=== PATIENT | female | born 2000 | race Caucasian/White ===

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

== ENCOUNTER 2020-01-04 00:58 | Emergency (ER) | payer SELFPAY ==
--- NOTE | 2020-01-04 01:32 | ER ---
Nurse's Notes [facility] Name: Johanna Davalos Age: 19 yrs Sex: Female : 2000 Arrival Date: 01/04/2020 Time: 01:00 Bed 16 Private MD: Diagnosis: Chronic pharyngitis Presentation: 01/03 01:25 Chief complaint: Patient states: i have sore throat, headache and sweating/fever for mg2 one week. last week i had dry cough i dont have it now. Ebola Screen: No symptoms or risks identified at this time. 01:25 Method Of Arrival: Ambulatory mg2 01:25 Coronavirus screen: Patient denies a cough. Patient denies shortness of breath or mg2 difficulty breathing. Patient denies travel on a cruise ship or to a country the [facility] currently lists as an affected area. Patient denies contact with known and/or suspected case of COVID-19. Risk Assessment: Do you want to hurt yourself or someone else? Patient reports no desire to harm self or others. 01:25 Initial Sepsis Screen: Does the patient meet any 2 criteria? No. Patient's initial mg2 sepsis screen is negative. Does the patient have a suspected source of infection? No. Patient's initial sepsis screen is negative. Onset of symptoms was December 2019. 01:25 Acuity: REKHA 4 mg2 Triage Assessment: 01:20 General: Behavior is calm, cooperative. 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 - Social history:: Smoking status: Patient denies any tobacco usage or history of. Screenin:15 Abuse screen: Denies threats or abuse. Denies injuries from another. Nutritional mg2 screening: No deficits noted. Tuberculosis screening: No symptoms or risk factors identified. 01:15 Fall Risk None identified. mg2 Assessment: 01:15 General: Appears in no apparent distress. comfortable. Pain: Complains of pain in head mg2 and throat. Neuro: Level of Consciousness is awake, alert, obeys commands, Oriented to person, place, time, situation. Cardiovascular: Capillary refill < 3 seconds Patient's skin is warm and dry. Respiratory: Airway is patent Respiratory effort is even, unlabored. GI:. GI: Reports constipation. : Reports burning with urination. EENT: Reports sore throat. Derm: Skin is intact, is healthy with good turgor, Skin is pink, warm \T\ dry. normal. Musculoskeletal: Circulation, motion, and sensation intact. Capillary refill < 3 seconds. 01:47 EENT: Throat. mg2 Vital Signs: 01:15 BP 124 / 86; Pulse 98; Resp 18; Temp 99; Pulse Ox 100% on R/A; mg2 ED Course: 01:00 Patient arrived in ED. cl3 01:03 Etienne Moyer MD is Attending Physician. tw4 01:15 Larry Moser, POOL is Primary Nurse. mg2 01:15 Arm band placed on. mg2 01:15 Patient has correct armband on for positive identification. mg2 01:15 No provider procedures requiring assistance completed. mg2 01:15 Patient did not have IV access during this emergency room visit. mg2 01:47 Triage completed. mg2 Administered Medications: No medications were administered Outcome: 01:31 Discharge ordered by . tw4 01:35 Medical screen evaluation completed per provider. mg2 01:35 Condition: stable 01:35 Instructed on discharge instructions, Demonstrated understanding of instructions. mg2 01:47 Patient left the ED. mg2 Signatures: Etienne Moyer MD MD tw4 Larry Moser, POOL RN mg2 Bianca Sharif cl3 Corrections: (The following items were deleted from the chart) 01:46 01:45 Patient has correct armband on for positive identification. mg2 mg2
--- NOTE | 2020-01-04 01:32 | EDPHYS ---
Physician Documentation [facility] Name: Johanna Davalos Age: 19 yrs Sex: Female : 2000 Arrival Date: 01/04/2020 Time: 01:00 Bed 16 Private MD: ED Physician Etienne Moyer HPI: 01/03 01:15 This 19 yrs old Female presents to ER via Unassigned with complaints of Sore tw4 Throat, Fever. 01:15 The patient presents with sore throat. The patient describes throat pain as constant. tw4 Onset: The symptoms/episode began/occurred 1 week(s) ago. Severity of symptoms: At their worst the symptoms were mild, in the emergency department the symptoms are unchanged. The patient has not experienced similar symptoms in the past. 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 - Social history:: Smoking status: Patient denies any tobacco usage or history of. ROS: 01:15 Constitutional: Negative for fever, chills, and weight loss, Cardiovascular: Negative tw4 for chest pain, palpitations, and edema, Respiratory: Negative for shortness of breath, cough, wheezing, and pleuritic chest pain, Abdomen/GI: Negative for abdominal pain, nausea, vomiting, diarrhea, and constipation, Back: Negative for injury and pain, MS/Extremity: Negative for injury and deformity, Skin: Negative for injury, rash, and discoloration, Neuro: Negative for headache, weakness, numbness, tingling, and seizure. 01:15 ENT: Positive for sore throat. Exam: 01:15 Constitutional: This is a well developed, well nourished patient who is awake, alert, tw4 and in no acute distress. Head/Face: Normocephalic, atraumatic. 01:15 Cardiovascular: Regular rate and rhythm with a normal S1 and S2. No gallops, murmurs, or rubs. Normal PMI, no JVD. No pulse deficits. Respiratory: Lungs have equal breath sounds bilaterally, clear to auscultation and percussion. No rales, rhonchi or wheezes noted. No increased work of breathing, no retractions or nasal flaring. Abdomen/GI: Soft, non-tender, with normal bowel sounds. No distension or tympany. No guarding or rebound. No evidence of tenderness throughout. Back: No spinal tenderness. No costovertebral tenderness. Full range of motion. MS/ Extremity: Pulses equal, no cyanosis. Neurovascular intact. Full, normal range of motion. Neuro: Awake and alert, GCS 15, oriented to person, place, time, and situation. Cranial nerves II-XII grossly intact. Motor strength 5/5 in all extremities. Sensory grossly intact. Cerebellar exam normal. Normal gait. 01:15 ENT: External ear(s): are unremarkable, Ear canal(s): are normal, TM's: are normal, Posterior pharynx: Tonsils: bilaterally enlarged, no erythema, no exudate, no ulcerations. Vital Signs: 01:15 BP 124 / 86; Pulse 98; Resp 18; Temp 99; Pulse Ox 100% on R/A; mg2 MDM: 01:03 Patient medically screened. tw4 01:15 Data reviewed: vital signs, nurses notes. Medical screen evaluation completed. [facility] emergency medical condition absent. Administered Medications: No medications were administered Disposition: 01:17 [facility] Disposition: 01/04/20 01:31 Discharged to Home. Impression: Chronic pharyngitis. - Condition is Stable. - Medication Reconciliation Form, Thank You Letter, Antibiotic Education, Prescription Opioid Use form. - Follow up: Private Physician; When: Upon discharge from the Emergency Department; Reason: Recheck today's complaints, Continuance of care, Re-evaluation by your physician. - Problem is new. - Symptoms are unchanged. Signatures: Etienne Moyer MD MD tw4 Larry Moser RN RN mg2 Corrections: (The following items were deleted from the chart) 01:47 01:31 01/04/2020 01:31 Discharged to Home. Impression: Chronic pharyngitis. Condition mg2 is Stable. Forms are Medication Reconciliation Form, Thank You Letter, Antibiotic Education, Prescription Opioid Use. Follow up: Private Physician; When: Upon discharge from the Emergency Department; Reason: Recheck today's complaints, Continuance of care, Re-evaluation by your physician. Problem is new. Symptoms are unchanged. tw4
[2020-01-04 02:11] VITALS: BP 124/86; TEMP 99; O2SAT 100
== END 2020-01-04 01:47 | disposition home or self-care (01) ==
LOC: ER 00:58
DX: J31.2 Chronic pharyngitis (principal)
CPT/HCPCS: 99281

== ENCOUNTER 2021-12-11 16:55 | Emergency (ER) | payer OTHER ==
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
[2021-12-11] MEDS ORDERED: KETOROLAC 30 MG/ML INJ ONE (17:16)
[2021-12-11 17:18] LABS: Urine Blood Trace-intact (Negative); Urine Glucose Negative (Negative); Urine Protein Negative (Negative); Urine Specific Gravity 1.025 (1.005-1.030)
[2021-12-11] MEDS ORDERED: IBUPROFEN 400 MG TAB ONE (17:24)
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
[2021-12-11 17:52] LABS: Urine Specific Gravity/Preg 1.025 (1.005-1.030)
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
[2021-12-11] MEDS ORDERED: HYDROCODONE/APAP 7.5/325 MG TAB ONE (18:46)
[2021-12-11 19:38] VITALS: BP 106/61; O2SAT 100
[2021-12-11 19:41] VITALS: TEMP 99.5
== END 2021-12-11 18:51 | disposition home or self-care (01) ==
LOC: ER 16:55
DX: S16.1XXA Strain of muscle, fascia and tendon at neck level, initial encounter (principal); S20.229A Contusion of unspecified back wall of thorax, initial encounter; V49.50XA Passenger injured in collision with unspecified motor vehicles in traffic accident, initial encounter
CPT/HCPCS: 70450; 71250; 72125; 81003; 81025; 99284

== ENCOUNTER 2022-02-19 16:09 | Emergency (ER) | payer OTHER ==
--- OUTSIDE RECORDS SUMMARY | 2022-02-19 16:12 | XMS REPORT | Continuity of Care Document ---
:2000 Author Organization [facility] t Address [address] [place] [address] Care Team Providers Name Role Phone Pcp, Does Not Have A Primary Care Physician Pavel Leger Attending Clinician Unavailable Rayray BRUNNER F Attending Clinician Michael SEO Attending Clinician Unavailable Physician, Primary or Family Admitting Clinician Unavailabl e Payers Payer Name Policy Type Policy Number Effective Date Expiration Date S ource Problems Condition Condition Condition Status Onset Resolution Last Treating Co mments Source Name Details Category Date Date Treatment Clinician Date No known No known Disease Unive rs active active ity of problems problems [facility] Allergies, Adverse Reactions, Alerts Allergy Allergy Status Severity Reaction(s) Onset Inactive Treating Comm ents Source Name Type Date Date Clinician No Known DA Active U 2020-09 [facility] No Known DA Active U 2020-09 [facility] [address] NO KNOWN Drug Active [facility] ALLERGIE Class ity of S [facility] Social History Social Habit Start Date Stop Date Quantity Comments Source Exposure to Not sure [facility] SARS-CoV-2 (event) Medica l Branch Sex Assigned At [birth year] [facility] [place] [facility]:00:00 Medical Branch Smoking Status Start Date Stop Date Source Unknown if ever smoked [facility] Medications Ordered Filled Start Stop Current Ordering Indication Dosage Frequency Signature Comments Components Source Medication Medication Date Date Medication? Clinician (SIG) Name Name ibuprofen 2020-09- No 600mg 600 mg, Uni vers (IBU) 0-20 10-20 Oral, ity of tablet 600 03:00: 01:53 ONCE, 1 Raphael as mg 00 :00 dose, On Medical e Branch 07/06/21 at 2200, ADE traMADoL 2020-09 No 50mg 50 mg, Univer s (ULTRAM) 0-20 10-20 Oral, ity of tablet 50 01:15: 00:42 ONCE, [place] mg 00 :00 dose, On Medical e Branch 07/06/21 at 2015, Routine traMADoL 50 2020-09 Yes [id number] 50mg Take 1 Univ ers mg tablet 0-19 tablet by ity o f 00:00: mouth [place] 00 every 6 Medical (six) Branch hours as needed for Pain (scale 7-10). Indication s: acute pain doxycycline 2020-09- No [id number] 100mg Take 1 Univers hyclate 100 07-14 [id number] capsule by ity of mg capsule 00:00: 04:59 mouth 2 Raphael as 00 :00 (two) Medical times Branch daily for 7 days. Immunizations Ordered Filled Immunization Date Status Comments [facility] [place] e Immunization Name Name Td 2021-07-06 [facility] 00:00:00 [facility] Vital Signs Vital Name Observation Time Observation Value Comments Source Systolic blood 2021-07-07 01:56:42 127 mm[Hg] Univer sity of pressure [facility] Diastolic blood 2021-07-07 01:56:42 85 mm[Hg] [facility] Heart rate 2021-07-07 01:56:42 95 /min [facility] ty [facility] Respiratory rate 2021-07-07 01:56:42 17 /min General acute hospital Oxygen saturation in 2021-07-07 01:56:42 99 /min [facility] Arterial blood by [facility] Pulse oximetry Branch Body temperature 2021-07-06 23:47:00 37.17 Emily [facility] acute hospital Body weight 2021-07-06 23:47:00 54.432 kg [facility] Procedures Procedure Date / Time Performed Performing Clinician Jaguar e XR FOOT 3+ VW LEFT 2021-07-07 00:52:42 Iris Seo [facility] acute hospital POCT TEST 2021-07-07 00:39:00 Iris Seo [facility] acute hospital Encounters Start End Encounter Admission Attending Care Care Encounter Source Date/Time Date/Time Type Type Clinicians Facility Department ID 2021-07-06 Inpatient [facility] TATI [id number] [facility] 23:50:00 [id number] [facility] [place] 2021-07-06 2021-07-07 Emergency ABDELRAHMAN Leger, [facility] TATI [id number] [facility] 23:50:00 02:20:00 [facility] [place] 2021-07-06 2021-07-06 Emergency [facility] [id number] [facility] 18:49:00 20:58:00 Iris [facility] [id number] [facility] [id number] [facility] [id number] [place] [id number] Branch 2021-07-06 2021-07-06 [facility] [id number] Univers 18:41:00 18:41:00 [facility] Results Test Description Test Time Test Comments Results Result Comments Source PAP TEST, THINPREP, IMAGED 2022-01-14 17:47:20 Test Item Value Reference Range Interpretation Comme nts SOURCE: (test code = Cervical/Endocervical 8001) SLIDES: (test code = 1 8011) LMP: (test code = 8021) 12/17/2021 SPECIMEN ADEQUACY: (test (NOTE) Satisfactory for code = 18895) evaluation. Endocervical cells/transform ation zone component prese nt. INTERPRETATION: (test LSIL/EPITH. ABNORMALITY; SEE A code = 34346) BELOW --- EPITHELIAL CELL ABNORMALITY Low Grade Squam ous Intraepithelial Lesion (LSIL) --- SURGICAL ONCOLOGIST: (test Pam Chowdary Judith,CT(ASCP)IAC code = 8101) PATHOLOGIST Jaison Yao. INTERPRETATION BY: (test code = 8122) LOCATION: (test code = (NOTE) [place] [address]) [facility] [address] [facility] [place] [address], Phone: , CLIA: [id number] i nterpreted at [facility], [address], [place] [address], Phone: , CLIA: [id number] CPT: (test code = 8140) (NOTE) 8817 5, 86006 UNLESS OTHERWISE INDIC ATED, COMPUTER AIDED AND CYTOTECHNOLOGIS T SCREENING PERFO RMED. The Pap test is a screening test with an inherent, but l ow probability of error. Your patient sh ould be reminded to consult you immediately if she experiences any suspicious signs or sy mptoms, regardless of h er Pap test result. An alternate report format c ontaining images or conso lidated prior Pap histo ry is available as ap plicable. CT/NG, TMA, [id number] 19:41:11 Test Item Value Reference Range Interpretation Comments GONORRHEA, TMA NEGATIVE NEGATIVE Assay m ethodology is (test code = nucleic acid am plification 35323) by transcriptio n mediated amplif ication (TMA) utilizing the Aptima Combo 2 Assay. CHLAMYDIA, TMA NEGATIVE NEGATIVE Assay m ethodology is (test code = nucleic acid am plification 12155) by transcriptio n mediated amplif ication (TMA) utilizing the Aptima Combo 2 Assay. HPV HIGH RISK WITH GENOTYPE, [id number] 16:34:15 Test Item Value Reference Range Interpretation Comments HPV HIGH RISK INTERP POSITIVE NEGATIVE A (test code = 41004) HPV 16 (test code = NEGATIVE 26048) HPV 18 (test code = NEGATIVE 83213) HPV, HR, OTHER POSITIVE A Testing GENOTYPES (test code methodo logy is real-time = 48171) PCR utilizing h ydrolysis probes with the Bridger Sadiq 480 0 system. The test indiv idually detects genot ypes 16 and 18, as well as the other 12 high r isk types (31,33,35,39,45 ,51,52,56 ,58,59,66,68). The expected re sult is negative. A negative result does not rule out the presence of HPV not included in the genotype set, a low level of infect ion or specimen fercho pling error. U NLESS OTHERWISE INDIC ATED, ALL TESTING PERFORM ED ATCLINICAL PATH [address] [address] LABORATORY DIRE CTOR: ROB SALAS M.D. CLIA NUMBER [id number] CAP ACCREDITATION N O. [id number] VAGINAL PATHOGENS DNA [id number] 14:55:18 Test Item Value Reference Range Interpretation Comments JANIS SPECIES (test NEGATIVE NEGATIVE code = ) G. VAGINALIS (test NEGATIVE NEGATIVE code = 56225) T. VAGINALIS (test NEGATIVE NEGATIVE UN LESS OTHERWISE code = 84915) INDICATED, ALL TESTING PERFORMED ATCLI NICAL PATHOLOGY [address] [address] LABORATORY DIR CHRIS: ROB SALAS M.D. CLIA NUMBER [id number] CAP ACCREDITATION N O. [id number] POCT [id number] 00:39:00 Test Item Value Reference Range Interpretation Comments POCT PREG (test code = 1605) negative On board controls acceptable with present C Line (test code = 3574) POCT PREG LOT # (test code = 3575) [id number] POCT PREG TEST DATE (test 10/18/2022 code = 3576) Lab Interpretation (test code = Normal 23126-4) [facility]- XR FOOT 3 + V [id number] 00:00:00 [facility] : 2000 Sex: F Patient Name: CATALINA SANDOVAL Unit No: [id number] EXAMS: CPT CODE: [id number] XR FOOT 3 + [place] [address] PROCEDURE INFORMATION: Exam: XR Left Foot Exam [...] CC: Technologist: RT Jac Trnscrbd D/ (216) [email or web address].[email or web address] OrigPrint D/T: S: 07/07/2021 (216) [facility] NAME: CATALINA SANDOVAL Radiology Department PHYS: Martin Walker [address] : 2000 AGE: 20 SEX: F [place], [place] [address] LOC: [place] PHONE #: [phone] EXAM DATE: 07/07/2021 STATUS: PRE ER FAX #: [phone] RAD NO: Page 1 Signed Report- XR FOOT 3 + V [id number] 00:00:00 [facility] : 2000 Sex: F Patient Name: CATALINA SANDOVAL Unit No: [id number] EXAMS: CPT CODE: [id number] XR FOOT 3 + [place] [id number] PROCEDURE INFORMATION: Exam: XR Left Foot Exam [...] signed by: Aquiles Pena MD CC: Technologist: Clair Herman, RT Trnscrbd D/ (0033) GCD.CPS Orig Print D/T: S: 07/07/2021 (0033) [facility] NAME: CATALINA SANDOVAL Radiology Department PHYS: Martin Walker [address] : 2000 AGE: 20 SEX: F [place], [place] [address] LOC: [place] PHONE #: [phone] EXAM DATE: 07/07/2021 STATUS: PRE ER FAX #: [phone] RAD NO: Page 1 Signed Report
[2022-02-19 17:57] LABS: Urine Blood Trace-intact (Negative); Urine Glucose Negative (Negative); Urine Protein Negative (Negative); Urine Specific Gravity 1.025 (1.005-1.030)
[2022-02-19 18:33] LABS: Urine Bacteria >50 /HPF (<20); Urine RBC NONE SEEN /HPF (NONE SEEN)
--- NOTE | 2022-02-19 19:30 | ER ---
Nurse's Notes [facility] Name: Johanna Davalos Age: 21 yrs Sex: Female : 2000 Arrival Date: 02/19/2022 Time: 16:19 Bed 5 Private MD: Diagnosis: UTI/ Urinary tract infection, site not specified;Encounter for test, result negative Presentation: 02/19 16:31 Chief complaint: Patient states: "Bad cramps" this week. Home test was ll1 negative, although she believes she might be . Coronavirus screen: Vaccine status: Patient reports being unvaccinated. Client denies travel out of the [place] in the last 14 days. At this time, the client does not indicate any symptoms associated with coronavirus-19. Ebola Screen: Patient denies travel to an Ebola-affected area in the 21 days before illness onset. Initial Sepsis Screen: Does the patient meet any 2 criteria? No. Patient's initial sepsis screen is negative. Does the patient have a suspected source of infection? No. Patient's initial sepsis screen is negative. Risk Assessment: Do you want to hurt yourself or someone else? Patient reports no desire to harm self or others. Onset of symptoms was February 12, 2022. 16:31 Method Of Arrival: Ambulatory ll1 16:31 Acuity: REKHA 4 ll1 Triage Assessment: 16:33 General: Appears in no apparent distress. Behavior is calm, cooperative, appropriate ll1 for age. Pain: Complains of pain in PELVIC Pain currently is 8 out of 10 on a pain scale. Quality of pain is described as crampy, Pain began 1 WEEK AGO. GI: Reports lower abdominal pain, cramping. : Reports cramping. Historical: - Allergies: 16:33 No Known Allergies; ll1 - PMHx: 16:33 None; ll1 - PSHx: 16:33 None; ll1 - Immunization history:: Client reports having NOT received the Covid vaccine. - Social history:: Smoking status: Reported history of juuling and/or vaping. Screenin:57 Abuse screen: Denies threats or abuse. Denies injuries from another. Nutritional tw5 screening: No deficits noted. Tuberculosis screening: No symptoms or risk factors identified. Fall Risk None identified. Assessment: 19:57 General: Appears in no apparent distress. Behavior is calm, cooperative, appropriate tw5 for age. Vital Signs: 16:31 BP 99 / 60; Pulse 85; Resp 16; Temp 99.1; Pulse Ox 97% on R/A; Weight 53.52 kg; Height ll1 5 ft. 2 in. (157.48 cm); Pain 8/10; 16:31 Body Mass Index 21.58 (53.52 kg, 157.48 cm) ll1 ED Course: 16:19 Patient arrived in ED. jj6 16:21 Jose Angel Guillory PA is PHCP. cp 16:21 Jose Angel Carter MD is Attending Physician. cp 16:31 Arm band placed on Patient placed in an exam room, on a stretcher. ll1 16:33 Triage completed. ll1 16:42 Rosario De Leon, RN is Primary Nurse. gagnon 18:27 Initial lab(s) drawn, by ks, sent to lab. jw7 18:31 Test, Serum Sent. ll1 19:57 Patient has correct armband on for positive identification. tw5 19:57 No provider procedures requiring assistance completed. Patient did not have IV access tw5 during this emergency room visit. Administered Medications: 19:55 Drug: Rocephin (cefTRIAXone) 1 grams Route: IM; Site: right ventrogluteal; gagnon 19:57 Follow up: Response: No adverse reaction tw5 Medication: 19:57 VIS not applicable for this client. tw5 Outcome: 19:30 Discharge ordered by . cp 19:57 Discharged to home tw5 19:57 Condition: good 19:57 Discharge instructions given to patient, Instructed on discharge instructions, follow up and referral plans. Demonstrated understanding of instructions, follow-up care, medications, Prescriptions given X 2. 19:58 Patient left the ED. tw5 Signatures: Jose Angel Guillory PA PA cp Lewis, Lynsay, RN RN [facility] Hanane Mayfield tw5 Larisa Bob jj6 Rosario De Leon, Nilda Markham RN jw7
--- NOTE | 2022-02-19 19:31 | EDPHYS ---
Physician Documentation [facility] Name: Johanna Davalos Age: 21 yrs Sex: Female : 2000 Arrival Date: 02/19/2022 Time: 16:19 Bed 5 Private MD: Jose Angel Meade HPI: 02/19 17:20 This 21 yrs old Female presents to ER via Ambulatory with complaints of Pelvic Pain, cp Low Back Pain. 17:20 The patient presents with urinary symptoms, hematuria. Associated signs and symptoms: cp Pertinent positives: cramping, vaginal discharge. 17:20 The patient's method of control includes nothing. cp 17:20 Patient reports concern for possible due to symptoms of cramping. Reports cp taking several home test that were negative. Historical: - Allergies: 16:33 No Known Allergies; ll1 - PMHx: 16:33 None; ll1 - PSHx: 16:33 None; ll1 - Immunization history:: Client reports having NOT received the Covid vaccine. - Social history:: Smoking status: Reported history of juuling and/or vaping. ROS: 17:30 Constitutional: Negative for body aches, chills, fever, poor PO intake. cp 17:30 Eyes: Negative for injury, pain, redness, and discharge. cp 17:30 ENT: Negative for drainage from ear(s), ear pain, sore throat, difficulty swallowing, difficulty handling secretions. 17:30 Cardiovascular: Negative for chest pain, edema, palpitations. 17:30 Respiratory: Negative for cough, shortness of breath, wheezing. 17:30 Abdomen/GI: Positive for abdominal cramps, Negative for vomiting, diarrhea, constipation, black/tarry stool, rectal bleeding. 17:30 : Positive for vaginal discharge. 17:30 Back: Positive for pain at rest. cp 17:30 All other systems are negative. cp Exam: 17:35 Constitutional: The patient appears in no acute distress, alert, awake, comfortable, cp non-toxic, well developed, well nourished. 17:35 Head/Face: Normocephalic, atraumatic. cp 17:35 Eyes: Periorbital structures: appear normal, Conjunctiva: normal, no exudate, no injection, Sclera: no appreciated abnormality, Lids and lashes: appear normal, bilaterally. 17:35 ENT: External ear(s): are unremarkable, Nose: is normal, Posterior pharynx: Airway: no evidence of obstruction, patent. 17:35 Chest/axilla: Inspection: normal. 17:35 Cardiovascular: Rate: normal, Rhythm: regular. 17:35 Respiratory: the patient does not display signs of respiratory distress, Respirations: normal, no use of accessory muscles, no retractions, labored breathing, is not present, Breath sounds: are clear throughout, no decreased breath sounds, no stridor, no wheezing. 17:35 Abdomen/GI: Inspection: abdomen appears normal, Bowel sounds: active, all quadrants, Palpation: soft, in all quadrants, mild abdominal tenderness, in the right lower quadrant and left lower quadrant, rebound tenderness, is not appreciated, involuntary guarding, is not appreciated. 17:35 Back: CVA tenderness, is absent. 17:35 Neuro: Orientation: to person, place \T\ time. Mentation: is normal, Motor: moves all fours, strength is normal, Sensation: is normal. Vital Signs: 16:31 BP 99 / 60; Pulse 85; Resp 16; Temp 99.1; Pulse Ox 97% on R/A; Weight 53.52 kg; Height ll1 5 ft. 2 in. (157.48 cm); Pain 8/10; 16:31 Body Mass Index 21.58 (53.52 kg, 157.48 cm) ll1 MDM: 16:31 Patient medically screened. cp 18:00 Differential diagnosis: appendicitis, cervicitis, dysmenorrhea, ectopic , cp kidney stone, menometrorrhagia, nonspecific abdominal pain, ovarian cyst, pelvic inflammatory disease, urinary tract infection, vaginosis. 19:30 Data reviewed: vital signs, nurses notes, lab test result(s), and as a result, I will cp discharge patient. 19:30 Counseling: I had a detailed discussion with the patient and/or guardian regarding: the cp historical points, exam findings, and any diagnostic results supporting the discharge/admit diagnosis, lab results, to return to the emergency department if symptoms worsen or persist or if there are any questions or concerns that arise at home. 02/19 17:57 Order name: Urine Microscopic Only; Complete Time: 19:06 serg 02/19 17:57 Order name: Urine Dipstick-Ancillary; Complete Time: 19:06 EDMN 02/19 17:58 Order name: Urine --Ancillary (enter results) eb 02/19 18:01 Order name: Test, Serum; Complete Time: 19:06 cp 02/19 18:36 Order name: Urine Culture [facility] 02/19 17:20 Order name: Urine Dipstick-Ancillary (obtain specimen); Complete Time: 17:58 cp 02/19 17:20 Order name: Urine Test (obtain specimen); Complete Time: 17:58 cp Administered Medications: 19:55 Drug: Rocephin (cefTRIAXone) 1 grams Route: IM; Site: right ventrogluteal; 19:57 Follow up: Response: No adverse reaction tw5 Disposition Summary: 02/19/22 19:30 Discharge Ordered Location: Home cp Problem: new cp Symptoms: are unchanged cp Condition: Stable cp Diagnosis - UTI/ Urinary tract infection, site not specified cp - Encounter for test, result negative cp Followup: cp - With: Private Physician - When: 1 week - Reason: Recheck today's complaints Discharge Instructions: - Discharge Summary Sheet cp - Urinary Tract Infection, Adult cp - Home Test Information cp Forms: - Medication Reconciliation Form cp - Thank You Letter cp - Antibiotic Education cp - Prescription Opioid Use cp Prescriptions: - Pyridium 200 mg Oral Tablet - take 1 tablet by ORAL route every 8 hours for 2 days; 6 tablet; Refills: 0, cp Product Selection Permitted - Bactrim DS 800-160 mg Oral Tablet - take 1 tablet by ORAL route every 12 hours for 7 days; 14 tablet; Refills: 0, cp Product Selection Permitted Signatures: Dispatcher [employer] [facility] Jose Angel Guillory PA PA cp Nereyda Sharif RN RN ll1 Rosario De Leon RN RN ha Wood, Tiffany tw5 Corrections: (The following items were deleted from the chart) 02/20 11:27 02/19 17:30 All other systems are negative, cp cp
[2022-02-19] MEDS ORDERED: WATER FOR INJ,STERILE 10 ML ONE (19:40)
[2022-02-19] MEDS ORDERED: CEFTRIAXONE 1000 MG/VIAL ONE (19:40)
[2022-02-19 20:03] VITALS: BP 99/60; TEMP 99.1; O2SAT 97
[2022-02-19 21:44] LABS: Urine Specific Gravity/Preg 1.025 (1.005-1.030)
== END 2022-02-19 19:58 | disposition home or self-care (01) ==
LOC: ER 16:09
DX: N39.0 Urinary tract infection, site not specified (principal); Z32.02 Encounter for pregnancy test, result negative
CPT/HCPCS: 36415; 81003; 81015; 81025; 84703; 87077; 87086; 87088; 87186; 96372; 99283

== ENCOUNTER 2023-07-12 20:12 | Emergency (ER) | payer OTHER ==
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
[2023-07-12] MEDS ORDERED: CYCLOBENZAPRINE 10 MG TAB ONE (21:18)
[2023-07-12] MEDS ORDERED: KETOROLAC 30 MG/ML INJ ONE (21:18)
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
[2023-07-13 16:12] VITALS: BP 105/67; TEMP 98.6; O2SAT 100
== END 2023-07-12 22:17 | disposition home or self-care (01) ==
LOC: ER 20:12
DX: M54.50 Low back pain, unspecified (principal); M54.2 Cervicalgia; V49.59XA Passenger injured in collision with other motor vehicles in traffic accident, initial encounter

== ENCOUNTER → 2023-10-13 | Emergency (ER) | payer OTHER, SELFPAY ==
[~2023-10-13] MED LIST: ACETAMINOPHEN 325 MG TABLET ONE
--- NOTE | 2023-10-14 01:26 | ER ---
Nurse's Notes [facility] Name: Johanna Davalos Age: 23 yrs Sex: Female : 2000 Arrival Date: 10/13/2023 Time: 23:39 Bed 12 Private MD: Diagnosis: SARS-associated coronavirus as the cause of diseases classified elsewhere Presentation: 10/13 23:44 Chief complaint: Patient states: exposure to covid, symptoms started . neck rv pain, headache, and sore throat. feels hot but no fever is documented. denies n/v. diarrhea x2. denies cough and congestion. Coronavirus screen: At this time, the client does not indicate any symptoms associated with coronavirus-19. Ebola Screen: No symptoms or risks identified at this time. Initial Sepsis Screen: Does the patient meet any 2 criteria? No. Patient's initial sepsis screen is negative. Does the patient have a suspected source of infection? No. Patient's initial sepsis screen is negative. Risk Assessment: Do you want to hurt yourself or someone else? Patient reports no desire to harm self or others. Onset of symptoms was October 13, 2023. 23:44 Method Of Arrival: Ambulatory rv 23:44 Acuity: REKHA 4 rv Triage Assessment: 23:47 General: Appears uncomfortable, Behavior is calm, cooperative. Pain: Complains of pain rv in neck, head, throat. EENT: Throat is clear. Neuro: Level of Consciousness is awake, alert, obeys commands, Oriented to person, place, time, situation. Cardiovascular: Capillary refill < 3 seconds Patient's skin is warm and dry. Respiratory: Airway is patent Respiratory effort is even, unlabored. GI: No signs and/or symptoms were reported involving the gastrointestinal system. : No signs and/or symptoms were reported regarding the genitourinary system. Derm: Skin is intact. Historical: - Allergies: 23:47 No Known Allergies; rv - Home Meds: 23:47 None [Active]; rv - PMHx: 23:47 None; rv - PSHx: 23:47 None; rv - Immunization history:: Adult Immunizations up to date. - Social history:: Smoking status: Reported history of juuling and/or vaping. Screenin/27 01:42 [facility] ED Fall Risk Assessment (Adult) History of falling in the last 3 months, jb4 including since admission No falls in past 3 months (0 pts) Confusion or Disorientation No (0 pts). Abuse screen: Denies threats or abuse. Nutritional screening: No deficits noted. Tuberculosis screening: No symptoms or risk factors identified. Assessment: 01:42 Reassessment: Patient appears in no apparent distress at this time. Patient and/or jb4 family updated on plan of care and expected duration. Pain level reassessed. Patient is alert, oriented x 3, equal unlabored respirations, skin warm/dry/pink. Vital Signs: 10/13 23:44 BP 112 / 75; Pulse 118; Resp 19; Temp 99.1; Pulse Ox 100% ; Weight 49.9 kg; Height 5 rv ft. 2 in. ; 23:44 Body Mass Index 20.12 (49.90 kg, 157.48 cm) rv ED Course: 23:41 Patient arrived in ED. jj6 23:43 Jose Angel Guillory PA is PHCP. cp 23:43 Jose Angel Carter MD is Attending Physician. cp 23:47 Triage completed. rv 23:48 Arm band placed on right wrist. rv 23:59 Strep Sent. jb4 23:59 COVID-19 SARS RT PCR Sent. jb4 23:59 Influenza Screen (a \T\ B) Sent. jb4 10/14 01:42 Patient has correct armband on for positive identification. Call light in reach. Side jb4 rails up X 1. 01:42 No provider procedures requiring assistance completed. Patient did not have IV access jb4 during this emergency room visit. Administered Medications: 00:04 Drug: Acetaminophen PO 650 mg PO once Route: PO; jb4 Outcome: 01:25 Discharge ordered by . cp 01:42 Discharged to home ambulatory, with friend, jb4 01:42 Condition: stable 01:42 Discharge instructions given to patient, Instructed on discharge instructions, follow up and referral plans. medication usage, Demonstrated understanding of instructions, follow-up care, medications, Prescriptions given X 2, 01:42 Patient left the ED. jb4 Signatures: Jose Angel Guillory PA PA cp Bryson, James RN RN jb4 Tim Sanchez RN RN rv Larisa Bob jj6 Corrections: (The following items were deleted from the chart) 10/13 23:48 23:44 Chief complaint: Patient states: exposure to covid, symptoms started . rv neck pain, headache, and sore throat. feels hot but no fever is documented. denies n/v. diarrhea x2. rv
--- NOTE | 2023-10-14 01:26 | EDPHYS ---
Physician Documentation [facility] Name: Johanna Davalos Age: 23 yrs Sex: Female : 2000 Arrival Date: 10/13/2023 Time: 23:39 Bed 12 Private MD: ED Physician Jose Angel Carter HPI: 10/14 00:00 This 23 yrs old Female presents to ER via Ambulatory with complaints of Ear Pain, Neck cp and Upper Back Pain, Fever. 00:00 The patient presents with pain. The complaints affect the right ear. Onset: The cp symptoms/episode began/occurred last week on . Associated signs and symptoms: Pertinent positives: body aches, fever, sore throat, cough, Pertinent negatives: vomiting, diarrhea. Severity of symptoms: in the emergency department the symptoms are unchanged despite home interventions. Historical: - Allergies: 10/13 23:47 No Known Allergies; rv - Home Meds: 23:47 None [Active]; rv - PMHx: 23:47 None; rv - PSHx: 23:47 None; rv - Immunization history:: Adult Immunizations up to date. - Social history:: Smoking status: Reported history of juuling and/or vaping. ROS: 10/14 00:05 Constitutional: Positive for body aches, chills, fatigue, Negative for fever, cp 00:05 Eyes: Negative for injury, pain, redness, and discharge, cp 00:05 ENT: Positive for sore throat, Negative for drainage from ear(s), ear pain, difficulty swallowing, difficulty handling secretions, 00:05 Cardiovascular: Negative for chest pain, 00:05 Respiratory: Positive for cough, 00:05 Abdomen/GI: Negative for vomiting, diarrhea, constipation, 00:05 Skin: Negative for rash, 00:05 Neuro: Positive for headache, Negative for altered mental status, Exam: 00:10 Head/Face: Normocephalic, atraumatic. cp 00:10 Constitutional: The patient appears in no acute distress, alert, awake, non-toxic, well developed, well nourished, uncomfortable, 00:10 Eyes: Periorbital structures: appear normal, Conjunctiva: normal, no exudate, no injection, Sclera: no appreciated abnormality, Lids and lashes: appear normal, bilaterally, 00:10 ENT: External ear(s): are unremarkable, Ear canal(s): are normal, clear, TM's: erythema, that is mild, bilaterally, Nose: is normal, Mouth: Lips: moist, Oral mucosa: moist, Posterior pharynx: Airway: no evidence of obstruction, patent, Tonsils: no enlargement, no exudate, erythema, that is mild, exudate, is not appreciated, 00:10 Neck: ROM/movement: is normal, is supple, without pain, no range of motions limitations, no meningismus, 00:10 Chest/axilla: Inspection: normal, 00:10 Cardiovascular: Rate: tachycardic, Rhythm: regular, 00:10 Respiratory: the patient does not display signs of respiratory distress, Respirations: normal, no use of accessory muscles, no retractions, labored breathing, is not present, Breath sounds: are clear throughout, no decreased breath sounds, no stridor, no wheezing, 00:10 Abdomen/GI: Inspection: abdomen appears normal, Palpation: abdomen is soft and non-tender, in all quadrants, 00:10 Back: CVA tenderness, is absent, 00:10 Skin: no rash present. 00:10 Neuro: Orientation: to person, place \T\ time. Mentation: is normal, Vital Signs: 10/13 23:44 BP 112 / 75; Pulse 118; Resp 19; Temp 99.1; Pulse Ox 100% ; Weight 49.9 kg; Height 5 rv ft. 2 in. ; 23:44 Body Mass Index 20.12 (49.90 kg, 157.48 cm) rv MDM: 23:49 Patient medically screened. cp 10/13 23:53 Order name: Strep cp 10/13 23:53 Order name: COVID-19 SARS RT PCR; Complete Time: 00:53 cp 10/13 23:53 Order name: Influenza Screen (a \T\ B); Complete Time: 00:53 cp 10/14 00:29 Order name: Throat Culture EDMS Administered Medications: 10/14 00:04 Drug: Acetaminophen PO 650 mg PO once Route: PO; jb4 Disposition Summary: 10/14/23 01:25 Discharge Ordered Notes: Location: Home cp Problem: new cp Symptoms: have improved cp Condition: Stable cp Diagnosis - SARS-associated coronavirus as the cause of diseases classified elsewhere cp Followup: cp - With: Private Physician - When: 2 - 3 days - Reason: Worsening of condition Discharge Instructions: - Discharge Summary Sheet cp - Form - Excuse from Work, School, or Physical Activity cp - COVID-19 cp - How to Protect Yourself and Others - [facility] (11/12/2021) cp - 10 Things You Can Do to Manage Your COVID-19 Symptoms at Home - [facility] (04/02/2021) cp - COVID-19: Quarantine and Isolation - [facility] (12/15/2021) cp - COVID-19: What to Do If You Are Sick - [facility] (12/07/2021) cp Forms: - Medication Reconciliation Form cp - Thank You Letter cp - Antibiotic Education cp - Prescription Opioid Use cp - Patient Portal Instructions cp - Leadership Thank You Letter cp - Work release form jb4 Prescriptions: - Ibuprofen 600 mg Oral tablet - take 1 tablet ORAL route every 8 hours As needed take with food; 30 tablet; cp Refills: 0, Product Selection Permitted - Zithromax Z-Handy 250 mg Oral Tablet - take 1 tablet ORAL route as directed for 5 days Day 1 - take two (2) tablets cp one time. Day 2, 3, 4 , 5 take one (1) tablet once daily.; 6 tablet; Refills: 0, Product Selection Permitted Signatures: Dispatcher [employer] EDMS Jose Angel Guillory PA PA cp Bryson, James, RN RN jb4 Tim Sanchez RN RN rv Corrections: (The following items were deleted from the chart) 10/15 01:30 01:25 Constitutional: The patient appears in no acute distress, alert, awake, cp non-toxic, well developed, well nourished, uncomfortable, cp 01:30 01:25 Head/Face: Normocephalic, atraumatic. cp cp 01:30 01:25 Eyes: Periorbital structures: appear normal, Conjunctiva: normal, no exudate, no cp injection, Sclera: no appreciated abnormality, Lids and lashes: appear normal, bilaterally, cp 01:30 01:25 ENT: External ear(s): are unremarkable, Ear canal(s): are normal, clear, TM's: cp erythema, that is mild, bilaterally, Nose: is normal, Mouth: Lips: moist, Oral mucosa: moist, Posterior pharynx: Airway: no evidence of obstruction, patent, Tonsils: no enlargement, no exudate, erythema, that is mild, exudate, is not appreciated, cp 01:25 Neck: ROM/movement: is normal, is supple, without pain, no range of motions cp limitations, no meningismus, cp 01: Chest/axilla: Inspection: normal, cp cp 01:25 Cardiovascular: Rate: tachycardic, Rhythm: regular, cp cp 01:25 Respiratory: the patient does not display signs of respiratory distress, cp Respirations: normal, no use of accessory muscles, no retractions, labored breathing, is not present, Breath sounds: are clear throughout, no decreased breath sounds, no stridor, no wheezing, cp : Abdomen/GI: Inspection: abdomen appears normal, Palpation: abdomen is soft and cp non-tender, in all quadrants, cp 01: Back: CVA tenderness, is absent, cp cp 01: Skin: no rash present. cp cp 01:25 Neuro: Orientation: to person, place \T\ time. Mentation: is normal, cp cp 10/13 01:25 Head/Face: Normocephalic, atraumatic. cp cp 10/15 00:10/13 01:25 Constitutional: The patient appears in no acute distress, alert, awake, cp non-toxic, well developed, well nourished, uncomfortable, cp 10/15 00:10/13 01:25 Eyes: Periorbital structures: appear normal, Conjunctiva: normal, no cp exudate, no injection, Sclera: no appreciated abnormality, Lids and lashes: appear normal, bilaterally, cp 10/15 00:10/13 01:25 ENT: External ear(s): are unremarkable, Ear canal(s): are normal, clear, cp TM's: erythema, that is mild, bilaterally, Nose: is normal, Mouth: Lips: moist, Oral mucosa: moist, Posterior pharynx: Airway: no evidence of obstruction, patent, Tonsils: no enlargement, no exudate, erythema, that is mild, exudate, is not appreciated, cp 10/15 00:10/13 01:25 Neck: ROM/movement: is normal, is supple, without pain, no range of motions cp limitations, no meningismus, cp 10/15 01:25 Chest/axilla: Inspection: normal, cp cp 10/15 00:10/13 01:25 Cardiovascular: Rate: tachycardic, Rhythm: regular, cp cp 10/15 00:10/13 01:25 Respiratory: the patient does not display signs of respiratory distress, cp Respirations: normal, no use of accessory muscles, no retractions, labored breathing, is not present, Breath sounds: are clear throughout, no decreased breath sounds, no stridor, no wheezing, cp 10/15 00:10/13 01:25 Abdomen/GI: Inspection: abdomen appears normal, Palpation: abdomen is soft cp and non-tender, in all quadrants, cp 10/15 00:10/13 01:25 Back: CVA tenderness, is absent, cp cp 10/15 00:10/13 01:25 Neuro: Orientation: to person, place \T\ time. Mentation: is normal, cp cp 10/15 00:10/13 01:25 Skin: no rash present. cp cp
[2023-10-14 03:51] VITALS: BP 112/75; TEMP 99.1; O2SAT 100
== END ==
LOC: ER 23:39
DX: U07.1 COVID-19 (principal)
CPT/HCPCS: 87070; 87081; 87635; 87804

== ENCOUNTER 2024-06-22 16:12 | Emergency (ER) | payer OTHER ==
--- NOTE | 2024-06-22 16:31 | ER ---
Nurse's Notes [facility] Name: Johanna Davalos Age: 23 yrs Sex: Female : 2000 Arrival Date: 06/22/2024 Time: 16:12 Bed 19 Private MD: Diagnosis: Acute pharyngitis, unspecified Presentation: 06/22 16:23 Chief complaint: Patient states: LOST HER VOICE, COUGH x 3-4 DAYS. Coronavirus screen: iw Client presents with at least one sign or symptom that may indicate coronavirus-19. Ebola Screen: No symptoms or risks identified at this time. Initial Sepsis Screen: Does the patient meet any 2 criteria? No. Patient's initial sepsis screen is negative. Does the patient have a suspected source of infection? No. Patient's initial sepsis screen is negative. Risk Assessment: Do you want to hurt yourself or someone else? Patient reports no desire to harm self or others. Onset of symptoms was June 19, 2024. 16:23 Method Of Arrival: Ambulatory iw 16:23 Acuity: REKHA 4 iw Triage Assessment: 16:40 General: Behavior is calm, cooperative. 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 - Infectious Disease History:: Denies. - Social history:: Smoking status: Reported history of juuling and/or vaping. - Family history:: not pertinent. Screenin:25 [facility] ED Fall Risk Assessment (Adult) History of falling in the last 3 months, db including since admission No falls in past 3 months (0 pts) Confusion or Disorientation No (0 pts) Intoxicated or Sedated No (0 pts) Impaired Gait No (0 pts) Mobility Assist Device Used No (0 pt) Altered Elimination No (0 pt) Score/Fall Risk Level 0 - 2 = Low Risk Oriented to surroundings, Maintained a safe environment. Abuse screen: Denies threats or abuse. Denies injuries from another. Nutritional screening: No deficits noted. Tuberculosis screening: No symptoms or risk factors identified. Assessment: 16:25 Reassessment: Patient appears in no apparent distress at this time. Patient and/or db family updated on plan of care and expected duration. Pain level reassessed. Patient is alert, oriented x 3, equal unlabored respirations, skin warm/dry/pink. General: Appears in no apparent distress. Pain: Complains of pain in mouth. Neuro: Level of Consciousness is awake, alert, obeys commands, Oriented to person, place, time, situation. Respiratory: Airway is patent Respiratory effort is even, unlabored, Respiratory pattern is regular, symmetrical. EENT: Throat is reddened. Vital Signs: 16:23 BP 111 / 61; Pulse 74; Resp 16; Temp 98.5; Pulse Ox 98% ; Weight 51.26 kg; Height 5 ft. iw 1 in. ; 16:23 Body Mass Index 21.35 (51.26 kg, 154.94 cm) iw ED Course: 16:14 Patient arrived in ED. mr 16:15 Janes Oakley MD is Attending Physician. rt 16:24 Triage completed. iw 16:25 Arm band placed on. iw 16:25 Patient has correct armband on for positive identification. Bed in low position. Call db light in reach. Side rails up X 1. Provided Education on: DISCHARGE AND FOLLOWUP. Pulse ox on. NIBP on. Warm blanket given. Pillow given. 16:25 No provider procedures requiring assistance completed. Patient did not have IV access db during this emergency room visit. 16:31 [place] Ambrocio, RN is Primary Nurse. db Administered Medications: No medications were administered Medication: 16:25 VIS not applicable for this client. db Outcome: 16:25 Discharged to home ambulatory, db 16:25 Condition: stable 16:25 Discharge instructions given to patient, Instructed on discharge instructions, follow up and referral plans. Prescriptions given X 1, 16:31 Discharge ordered by . rt 16:42 Patient left the ED. db Signatures: Greta Tipton, Reg Reg mr Salina Fox RN RN iw [place] Ambrocio, RN RN db Janes Oakley MD MD rt
--- NOTE | 2024-06-22 16:31 | EDPHYS ---
Physician Documentation [facility] Name: Johanna Davalos Age: 23 yrs Sex: Female : 2000 Arrival Date: 06/22/2024 Time: 16:12 Bed 19 Private MD: ED Physician Janes Oakley HPI: 06/22 18:05 This 23 yrs old Female presents to ER via Ambulatory with complaints of Flu Symptoms. rt 18:05 Patient presents to the ED with sore throat, hoarse voice for about 4 days. Patient rt denies cough, difficulty breathing. Patient states that she wishes to be swabbed, then be discharged subsequently because she has a sick family member that she needs to attend to in the hospital. Denies other acute complaints at this time, symptoms are mild in severity, no other aggravating or alleviating factors.. 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 - Infectious Disease History:: Denies. - Social history:: Smoking status: Reported history of juuling and/or vaping. - Family history:: not pertinent. ROS: 18:05 Constitutional: Negative for fever, chills, and weight loss, Cardiovascular: Negative rt for chest pain, palpitations, and edema, Respiratory: Negative for shortness of breath, cough, wheezing, and pleuritic chest pain, Abdomen/GI: Negative for abdominal pain, nausea, vomiting, diarrhea, and constipation, Skin: Negative for injury, rash, and discoloration, Neuro: Negative for headache, weakness, numbness, tingling, and seizure, 18:05 ENT: Positive for hoarseness, sore throat, Exam: 18:05 Constitutional: This is a well developed, well nourished patient who is awake, alert, rt and in no acute distress. Head/Face: Normocephalic, atraumatic. Chest/axilla: Normal chest wall appearance and motion. Nontender with no deformity. No lesions are appreciated. Cardiovascular: Regular rate and rhythm with a normal S1 and S2. No gallops, murmurs, or rubs. Normal PMI, no JVD. No pulse deficits. Respiratory: Lungs have equal breath sounds bilaterally, clear to auscultation and percussion. No rales, rhonchi or wheezes noted. No increased work of breathing, no retractions or nasal flaring. Abdomen/GI: Soft, non-tender, with normal bowel sounds. No distension or tympany. No guarding or rebound. No evidence of tenderness throughout. Skin: Warm, dry with normal turgor. Normal color with no rashes, no lesions, and no evidence of cellulitis. MS/ Extremity: Pulses equal, no cyanosis. Neurovascular intact. Full, normal range of motion. Neuro: Awake and alert, GCS 15, oriented to person, place, time, and situation. Cranial nerves II-XII grossly intact. Motor strength 5/5 in all extremities. Sensory grossly intact. Cerebellar exam normal. Normal gait. 18:05 ENT: Mild posterior pharyngeal erythema without exudates or tonsillar hypertrophy, uvula is midline. Vital Signs: 16:23 BP 111 / 61; Pulse 74; Resp 16; Temp 98.5; Pulse Ox 98% ; Weight 51.26 kg; Height 5 ft. iw 1 in. ; 16:23 Body Mass Index 21.35 (51.26 kg, 154.94 cm) iw MDM: 16:24 Patient medically screened. rt 18:05 Differential Diagnosis Strep pharyngitis, viral syndrome. Data reviewed: vital signs, rt nurses notes, lab test result(s). Test considered but Not performed: Labs: Clear breath sounds, x-ray not indicated. Counseling: I had a detailed discussion with the patient and/or guardian regarding the historical points, exam findings, and any diagnostic results supporting the discharge/admit diagnosis, the need for outpatient follow up, to return to the emergency department if symptoms worsen or persist or if there are any questions or concerns that arise at home. Response to treatment: There is no appreciated change of the patient's symptoms at this time. 06/22 16:30 Order name: Influenza Screen (a \T\ B); Complete Time: 17:28 rt 06/22 16:30 Order name: SARS RAPID; Complete Time: 17:28 rt 06/22 16:30 Order name: Strep rt Administered Medications: No medications were administered Disposition Summary: 06/22/24 16:31 Discharge Ordered Notes: Location: Home rt Problem: new rt Symptoms: are unchanged rt Condition: Stable rt Diagnosis - Acute pharyngitis, unspecified rt Followup: rt - With: Private Physician - When: 2 - 3 days - Reason: Discharge Instructions: - Discharge Summary Sheet rt - Pharyngitis rt Forms: - Medication Reconciliation Form rt - Antibiotic Education rt - Prescription Opioid Use rt - Patient Portal Instructions rt - Leadership Thank You Letter rt Prescriptions: - Amoxicillin 875 mg Oral Tablet - take 1 tablet ORAL route every 12 hours for 10 days; 20 tablet; Refills: 0, rt Product Selection Permitted Signatures: Dispatcher [employer] Salina Welch, POOL RN Janes Frankel MD MD rt
[2024-06-22 16:53] VITALS: BP 111/61; TEMP 98.5; O2SAT 98
[2024-06-22 17:24] LABS: SARS-CoV-2 Antigen CONTROL BLUE LINE VIS/BG OK; SARS-CoV-2 Antigen Rapid Res Negative (Negative)
== END 2024-06-22 16:42 | disposition home or self-care (01) ==
LOC: ER 16:12
DX: J02.9 Acute pharyngitis, unspecified (principal); Z11.52 Encounter for screening for COVID-19
CPT/HCPCS: 36415; 87070; 87081; 87804; 87811; 99283